=== PATIENT | female | born 1965 | race Hispanic/Latino ===

== ENCOUNTER 2016-07-26 08:03 | Outpatient (CLI) | payer OTHER | END 2016-07-26 08:04 | disposition home or self-care (01) | LOC: FBHC 08:03 → LAB 08:03 → FBHC 08:04 → EDSTATUS 16:46 | PROVIDERS: ATTEND Surgery | DX: R92.0 Mammographic microcalcification found on diagnostic imaging of breast (principal) | CPT/HCPCS: 88305 ==

== ENCOUNTER 2016-09-13 09:02 | Outpatient (CLI) | payer OTHER ==
--- NOTE | 2016-09-13 14:39 | Magnetic Resonance Report ---
BILATERAL BREAST MRI WITHOUT AND WITH CONTRAST: 09/13/16 09:02:00 CLINICAL: Status post recent surgical excision for atypia. COMPARISON:06/28/16. TECHNIQUE: Axial 1.0-mm T1 without, axial high resolution 2.0-mm T2 and axial 1.0-mm dynamic Vibrant high-resolution postcontrast T1 fat saturation sequences on a 1.5 Abby magnet. The examination was performed with an 8 channel dedicated [place] breast coil. Post processing with CAD and subtraction was performed on an [employer] workstation. 20 cc of Multihance was injected without incident for the contrast portion of the exam. Consent was obtained prior to the administration of the contrast. FINDINGS: Right: Minimal background parenchymal enhancement. No mass or suspicious enhancement. No suspicious lymph nodes. Left: Minimal background parenchymal enhancement. No mass or suspicious enhancement. Moderate skin thickening (5 mm) of the lower inner breast. A postsurgical seroma in the outer breast measures 6.4 x 4.5 x 4.1 cm. No suspicious lymph nodes. IMPRESSION: No evidence of malignancy and no suspicious lesion. Benign postsurgical changes in the left breast. 2 -- Benign
== END 2016-09-13 09:03 | disposition home or self-care (01) ==
LOC: SPVIMAG 09:02
PROVIDERS: ATTEND Surgery
DX: N60.82 Other benign mammary dysplasias of left breast (principal); R92.1 Mammographic calcification found on diagnostic imaging of breast
CPT/HCPCS: 0159T; A9577; C8908; 77059